=== PATIENT | female | born 1985 | race Caucasian/White ===

== ENCOUNTER → 2019-03-28 14:52 | Outpatient (BNVA) | payer BC, SELFPAY | PROVIDERS: Family Provider Family Medicine; PCP Family Medicine; Visit Provider Nurse Practitioner | DX: G89.29 Other chronic pain (principal); M47.16 Other spondylosis with myelopathy, lumbar region; M25.551 Pain in right hip; M25.552 Pain in left hip; Z79.891 Long term (current) use of opiate analgesic | CPT/HCPCS: 99214 ==

== ENCOUNTER → 2019-05-30 10:45 | Outpatient (BNVA) | payer BC, SELFPAY | PROVIDERS: Family Provider Family Medicine; PCP Family Medicine; Visit Provider Nurse Practitioner | DX: M47.16 Other spondylosis with myelopathy, lumbar region (principal); M25.551 Pain in right hip; M25.552 Pain in left hip; Z79.891 Long term (current) use of opiate analgesic | CPT/HCPCS: 99214 ==

== ENCOUNTER 2022-06-06 13:47 | Emergency (ER) | payer BC, MEDICAID, SELFPAY ==
[2022-06-06 13:50] VITALS: BP 136/82; PULSE 70; RESP 18; TEMP 36.7; O2SAT 98
[2022-06-06 15:16] LABS: Basophils # 0.1 10^3/uL (0.0-0.1); Basophils % 0.6 %; Eosinophils # 0.5 10^3/uL (0.0-0.8); Eosinophils % 5.4 %; Hematocrit 29.1 % (37.0-47.0); Hemoglobin 8.4 g/dL (11.5-15.3); Lymphocytes # 2.3 10^3/uL (0.8-4.8); Mean Corpuscular HGB Conc 28.9 g/dL (30.0-36.0); Mean Corpuscular Hemoglobin 22.7 pg (28.0-34.0); Mean Corpuscular Volume 78.6 fl (81-99); Mean Platelet Volume 9.1 fL (7.4-10.4); Monocytes # 0.6 10^3/uL (0.2-0.9); Monocytes % 6.5 %; Neutrophils # 5.48 10^3/uL (1.8-7.7); Neutrophils % 61.1 %; Nucleated Red Blood Cells % 0 %; Platelet Count 408 10^3/cmm (130-400); Red Cell Distribution Width 17.8 % (12.1-15.1)
[2022-06-06 15:31] LABS: HCG, Serum Qual Negative (Negative)
[2022-06-06 15:36] LABS: Alanine Aminotransferase 15 U/L (0-33); Alkaline Phosphatase 163 U/L (35-105); Anion Gap 16.4 (5-19); Aspartate Amino Transferase 15 U/L (0-32); Blood Urea Nitrogen 7 mg/dL (6-20); Calcium 9.1 mg/dL (8.5-10.5); Carbon Dioxide 22 mmol/L (22-29); Chloride 109 mmol/L (98-107); Globulin 3.6 g/dL (1.3-4.6); Glomerular Filtration Rate 80.7 mL/min (90-130); Glucose 89 mg/dL (65-115); Osmolality Calculated 295 mOsm/kg (285-295); Potassium 3.4 mmol/L (3.5-5.1); Sodium 144 mmol/L (136-145); Total Bilirubin 0.3 mg/dL (0.15-1.2); Total Protein 7.6 g/dL (6.6-8.7)
[2022-06-06 15:53] VITALS: BP 157/104; PULSE 76; RESP 18; O2SAT 100
--- NOTE | 2022-06-06 16:27 | CTR_ITS ---
PROCEDURE INFORMATION: Exam: CTA Chest With Contrast Exam date and time: 06/06/2022 5:17 PM Age: 37 years old Clinical indication: Sternal or substernal pain; Additional info: Chest pain, dyspnea, HX pe/dvt, subtherapeutic inr TECHNIQUE: Imaging protocol: Computed tomographic angiography of the chest with contrast. 3D rendering (Not supervised by radiologist): MIP and/or 3D reconstructed images were created by the technologist. Radiation optimization: All CT scans at this facility use at least one of these dose optimization techniques: automated exposure control; mA and/or kV adjustment per patient size (includes targeted exams where dose is matched to clinical indication); or iterative reconstruction. Contrast material: OMNI 350; Contrast volume: 100 ml; Contrast route: INTRAVENOUS (IV); REPORTING DATA: Count of CT and Cardiac NM exams in prior 12 months: This patient has received 0 known CTs and 0 known cardiac nuclear medicine studies in the 12 months prior to the current study. COMPARISON: CT thoracic spin wo con* [id number] 03/07/2018 8:15 AM RADIATION DOSE METRICS: Total DLP (mGy-cm): 533.75 FINDINGS: Pulmonary arteries: Normal. No pulmonary emboli. Aorta: Unremarkable. No aortic aneurysm. No aortic dissection. Lungs: Left lower lobe atelectasis versus minimal infiltrate. Pleural spaces: Unremarkable. No pneumothorax. No pleural effusion. Heart: Unremarkable. No cardiomegaly. No pericardial effusion. Lymph nodes: Unremarkable. No enlarged lymph nodes. Bones/joints: Lower thoracic spine and upper lumbar spine vertebral body ankylosis suspected, incompletely visualized, please correlate for possible ankylosing spondylitis. Soft tissues: Cholecystectomy. CT/CT angio chest PE protcl [id number] IMPRESSION: 1. Negative for pulmonary embolus. 2. Lower thoracic spine and upper lumbar spine vertebral body ankylosis suspected, incompletely visualized, please correlate for possible ankylosing spondylitis. 3. Left lower lobe atelectasis versus minimal infiltrate. 4. Cholecystectomy.
--- NOTE | 2022-06-06 16:27 | USR_ITS ---
PROCEDURE INFORMATION: Exam: US Duplex Lower Extremity Veins, Bilateral Exam date and time: 06/06/2022 4:48 PM Age: 37 years old Clinical indication: Pain; Leg, lower; Right; Additional info: Leg pain, cramps, chest pain, dyspnea, HX of dvt/pe, , subtherapeutic inr TECHNIQUE: Imaging protocol: Real-time duplex ultrasound of the bilateral extremities with 2-D zaragoza scale, color Doppler flow and spectral waveform analysis including responses to compression and other maneuvers (when performed) with image documentation. Complete exam focused on the lower extremity veins. COMPARISON: No relevant prior studies available. FINDINGS: Right deep veins: Unremarkable. The common femoral, femoral, proximal profunda femoral and popliteal veins are patent without thrombus. Normal Doppler waveforms. Normal compressibility and/or augmentation response. Right superficial veins: Saphenofemoral junction is patent without thrombus. Left deep veins: Unremarkable. The common femoral, femoral, proximal profunda femoral and popliteal veins are patent without thrombus. Normal Doppler waveforms. Normal compressibility and/or augmentation response. Left superficial veins: Saphenofemoral junction is patent without thrombus. Soft tissues: Unremarkable. US/[place] [id number] IMPRESSION: No evidence of deep vein thrombosis.
[2022-06-06 16:28] LABS: Glucose Urine UA Norm (Normal); Ketones Urine Negative (Negative); Protein Urine 1+ (Negative); Urine Appearance Hazy (CLEAR); Urine Color Yellow (Yellow); pH Urine 6 (5-7)
[2022-06-06 16:29] LABS: Add Urine Microscopic? YES; Bacteria Urine TRACE /hpf; Bilirubin Urine Neg (Negative); Blood Urine 3+ (Negative); Leukocyte Esterase Urine Trace (Negative); Mucus Urine 1+ /hpf; Nitrate Urine Negative (Negative); RBC Urine 40-50 /hpf (0-2); Urobilinogen Urine Neg (Negative); WBC Urine 0-4 /hpf (0-5)
[2022-06-06 16:30] LABS: Add Urine Culture? Yes
--- NOTE | 2022-06-06 16:30 | ED_ITS ---
HPI - General Adult General: Chief complaint: General Medical Stated complaint: SOB Time Seen by Provider: 06/06/22 16:13 History of Present Illness: Patient presents to the ER with complaints of dizziness leg cramps chest pain weakness for about the last 4 days. Patient has a history of DVT and PE starting in March of this year due to being put on control pills for vaginal bleeding. Patient is on Coumadin at this time. But her last INR was 1.3 approximately 4 days ago. Patient still having abnormal vaginal bleeding which she is following up with a teachers assistant for. Patient states she feels just like she did in March when she was diagnosed with her DVT and PE Onset (ago): day(s) (For) Location: chest and lower extremity Radiation: non-radiation Severity: moderate Quality: burning and aching Pain Consistency: constant Relieving factors: none Exacerbating factors: none Associated symptoms: Reports chest pain; Deny dyspnea, headache(s), nausea, rash, palpitations or vomiting Review of Systems General: Reports: 10 or more systems reviewed and unremarkable except in HPI and below Const: Reports: body aches; Denies: fever(s) or chills Eyes: Denies: change in vision ENMT: Denies: throat pain or odynophagia Card: Reports: chest pain and edema; Denies: palpitations or irregular heart rhythm Resp: Denies: dyspnea, productive cough or non-productive cough GI: Reports: diarrhea; Denies: abdominal pain, nausea or vomiting : Reports: vaginal bleeding; Denies: flank pain, difficulty voiding, dysuria or urinary frequency Musc: Reports: extremity pain, extremity swelling and muscle cramps; Denies: neck pain or back pain Skin/Breast: Denies: rash, pruritus or erythema Neuro: Denies: headache(s), numbness in extremities or weakness in extremities Psych: Denies: anxiety or depression Endo: Denies: polyuria or polydipsia Jemal/Lymph: Reports: easy bruising and easy bleeding All/Imm: Denies: urticaria, throat swelling or tongue swelling PFSH ED PFSH: Medical History Ankylosing spondylitis of thoracolumbar region Back pain with history of spinal surgery back surgeries x4 Bilateral hip pain Bipolar 1 disorder, depressed, moderate Borderline personality disorder Encounter for long-term opiate analgesic use Low back pain Obstructive sleep apnea (adult) (pediatric) Opioid contract exists Other spondylosis with myelopathy, lumbar region Post-traumatic stress disorder, chronic Psychiatric care Surgical History S/P cholecystectomy laparoscopic S/P wisdom tooth extraction Family History Grandfather Cancer testicular Grandmother Cancer ovary, lung Social History Smoking and tobacco status: never smoked Alcohol intake: never Physical Exam Const: COMMON NORMALS: patient oriented x3, no limitations, healthy appearing, alert and well nourished HENMT: COMMON NORMALS: normocephalic, atraumatic and hearing grossly normal bilaterally HEAD & SCALP: normocephalic and atraumatic Eye: COMMON NORMALS: Equal, round and reactive pupils present, EOMs intact bilaterally and conjunctivae normal CONJUNCTIVA: Yes conjunctivae normal PUPIL: Yes Equal, round and reactive pupils present Neck/C-Spine: COMMON NORMALS: full ROM, no lymphadenopathy, supple, no JVD and Thyroid normal THYROID: Thyroid normal Lymph: LYMPHATIC: no lymphadenopathy noted Chest: COMMONS NORMALS: normal inspection of the chest Resp: COMMON NORMALS: normal respiratory effort, No retractions, No use of accessory muscles and clear to auscultation bilaterally AUSCULTATION: clear to auscultation bilaterally Cardio: COMMON NORMALS: no JVD, regular rate, regular rhythm, S1 normal heart sound present and S2 normal heart sound present RATE: regular rate RHYTHM: regular rhythm HEART SOUNDS: S1 normal heart sound present and S2 normal heart sound present GI: COMMON NORMALS: Normal to inspection, nondistended, normoactive bowel sounds present, Soft to palpation, non-tender and No hepatosplenomegaly present PALPATION: Yes Soft to palpation and Yes No hepatosplenomegaly present : COMMON NORMALS: Yes no CVA tenderness BLADDER/KIDNEY EXAM: Yes no CVA tenderness Back/Pelvis: COMMON NORMALS: no CVA tenderness Extremity: GENERAL: Yes normal exam except as noted, Yes calf tenderness and Yes edema Neuro: COMMON NORMALS: patient oriented x3, CN's II-XII intact bilaterally, moves all extremities, no focal motor deficits and no sensory deficits noted SENSORIUM/ORIENTATION: Yes alert Course Vital Signs: Vital signs: Vital Signs Temperature 98.0 F 06/06/22 13:50 Pulse Rate 72 06/06/22 17:52 Respiratory Rate 18 06/06/22 17:52 Blood Pressure 141/94 06/06/22 17:52 Pulse Oximetry 100 06/06/22 17:52 Oxygen Delivery Me thod 06/06/22 17:52 MDM - General Adult Medical Decision Making Patient presents with long-term history of vaginal bleeding and is currently on Coumadin for history of DVT and PE. Has been having dizziness leg cramps chest pain weakness for about the last 4 days. Patient says this feels exact like when she had her last DVT and PE. History and physical were performed as well as lab work and imaging. CBC showed the patient was anemic with a hemoglobin of 8.4 which is consistent with with what she said she was up approximate week ago, INR was 1.61 which is improved from 1.3 approximately 1 week ago urinalysis did show 3+ blood, venous duplex ultrasound of bilateral lower extremities was negative for DVT, chest CT angiogram was negative for PE. Patiently is currently working with a DECONTAMINATOR to control her bleeding. Labs and imaging as well as physical exam was discussed with patient and patient is comfortable with being discharged to follow-up with her DECONTAMINATOR for further work-up and treatment. Differential Diagnosis Anemia, dysfunctional uterine bleeding, anticoagulation, chest pain, PE, DVT Lab Data I reviewed the patient's lab results. 06/06/22 15:06 06/06/22 15:06 Radiology Impressions Chest CTA 06/06/22 16:27 IMPRESSION: 1. Negative for pulmonary embolus. 2. Lower thoracic spine and upper lumbar spine vertebral body ankylosis suspected, incompletely visualized, please correlate for possible ankylosing spondylitis. 3. Left lower lobe atelectasis versus minimal infiltrate. 4. Cholecystectomy. Venous Duplex 06/06/22 16:27 IMPRESSION: No evidence of deep vein thrombosis. Laboratory Results WBC 9.0 10^3/uL (4.0-10.0) 06/06/22 15:06 RBC 3.70 10^6/uL (4.1-5.3) L 06/06/22 15:06 Hgb 8.4 g/dL (11.5-15.3) L 06/06/22 15:06 Hct 29.1 % (37.0-47.0) L 06/06/22 15:06 MCV 78.6 fl (81-99) L 06/06/22 15:06 MCH 22.7 pg (28.0-34.0) L 06/06/22 15:06 MCHC 28.9 g/dL (30.0-36.0) L 06/06/22 15:06 RDW 17.8 % (12.1-15.1) H 06/06/22 15:06 Plt Count 408 10^3/cmm (130-400) H 06/06/22 15:06 MPV 9.1 fL (7.4-10.4) 06/06/22 15:06 Neut % (Auto) 61.1 % 06/06/22 15:06 Lymph % (Auto) 26.0 % 06/06/22 15:06 [place] % (Auto) 6.5 % 06/06/22 15:06 Eos % (Auto) 5.4 % 06/06/22 15:06 Baso % (Auto) 0.6 % 06/06/22 15:06 Neut # (Auto) 5.48 10^3/uL (1.8-7.7) 06/06/22 15:06 Lymph # (Auto) 2.3 10^3/uL (0.8-4.8) 06/06/22 15:06 [place] # (Auto) 0.6 10^3/uL (0.2-0.9) 06/06/22 15:06 Eos # (Auto) 0.5 10^3/uL (0.0-0.8) 06/06/22 15:06 Baso # (Auto) 0.1 10^3/uL (0.0-0.1) 06/06/22 15:06 Nucleated RBC % (auto) 0 % 06/06/22 15:06 Nucleated RBCs # 0.0 /100WBC 06/06/22 15:06 PT 19.70 SECONDS (12.1-14.9) H 06/06/22 15:06 INR 1.61 (0.8-1.2) H 06/06/22 15:06 Sodium 144 mmol/L (136-145) 06/06/22 15:06 Potassium 3.4 mmol/L (3.5-5.1) L 06/06/22 15:06 Chloride 109 mmol/L (98-107) H 06/06/22 15:06 Carbon Dioxide 22 mmol/L (22-29) 06/06/22 15:06 Anion Gap 16.4 (5-19) 06/06/22 15:06 BUN 7 mg/dL (6-20) 06/06/22 15:06 Creatinine 0.8 mg/dL (0.5-0.9) 06/06/22 15:06 GFR Calculation 80.7 mL/min (90-130) L 06/06/22 15:06 Glucose 89 mg/dL (65-115) 06/06/22 15:06 Calculated Osmolality 295 mOsm/kg (285-295) 06/06/22 15:06 Calcium 9.1 mg/dL (8.5-10.5) 06/06/22 15:06 Magnesium 2.0 mg/dL (1.7-2.3) 06/06/22 15:06 Total Bilirubin 0.3 mg/dL (0.15-1.2) 06/06/22 15:06 AST 15 U/L (0-32) 06/06/22 15:06 ALT 15 U/L (0-33) 06/06/22 15:06 Alkaline Phosphatase 163 U/L (35-105) H 06/06/22 15:06 Total Protein 7.6 g/dL (6.6-8.7) 06/06/22 15:06 Albumin 4.0 g/dL (3.5-5.2) 06/06/22 15:06 Globulin 3.6 g/dL (1.3-4.6) 06/06/22 15:06 HCG, Qual Negative (Negative) 06/06/22 15:06 Urine Color Yellow (Yellow) 06/06/22 15:57 Urine Appearance Hazy (CLEAR) A 06/06/22 15:57 Urine pH 6 (5-7) 06/06/22 15:57 Ur Specific [place] 1.020 (1.005-1.030) 06/06/22 15:57 Urine Protein 1+ (Negative) H 06/06/22 15:57 Urine Glucose (UA) Norm (Normal) 06/06/22 15:57 Urine Ketones Negative (Negative) 06/06/22 15:57 Urine Blood 3+ (Negative) H 06/06/22 15:57 Urine Nitrate Negative (Negative) 06/06/22 15:57 Urine Bilirubin Neg (Negative) 06/06/22 15:57 Urine Urobilinogen Neg mg/dL (Negative) 06/06/22 15:57 Ur Leukocyte Esterase Trace (Negative) H 06/06/22 15:57 Urine RBC 40-50 /hpf (0-2) H 06/06/22 15:57 Urine WBC 0-4 /hpf (0-5) H 06/06/22 15:57 Ur Squamous Epith Cells None /hpf (0-5) 06/06/22 15:57 Amorphous Sediment Not Reportable 06/06/22 15:57 Urine Bacteria Trace /hpf (NONE) 06/06/22 15:57 Urine Mucus 1+ /hpf 06/06/22 15:57 EKG Data EKG 1: I personally reviewed and interpreted this EKG as follows: EKG interpretation date: 06/06/22 EKG interpretation time: 16:39 Prior EKG tracings: not available for review Interpretation: EKG showed normal sinus rhythm with a ventricular rate of 73 bpm NC interval of 138, QRS duration 97, QTc 418, no ST-T wave changes Computer generated interpretation: Chest CTA 06/06/22 16:27 IMPRESSION: 1. Negative for pulmonary embolus. 2. Lower thoracic spine and upper lumbar spine vertebral body ankylosis suspected, incompletely visualized, please correlate for possible ankylosing spondylitis. 3. Left lower lobe atelectasis versus minimal infiltrate. 4. Cholecystectomy. Venous Duplex 06/06/22 16:27 IMPRESSION: No evidence of deep vein thrombosis. Discharge Plan Discharge Patient Disposition: Home Clinical Impression: Abnormal vaginal bleeding, Subtherapeutic international normalized ratio (INR), Leg pain, bilateral, History of thromboembolism Anemia Qualifiers: Anemia type: other cause Condition: Stable Prescriptions: No Action buspirone 10 mg tablet 30 mg PO BID Qty: 180 5RF lamotrigine [Lamictal] 200 mg tablet 200 mg PO BID Qty: 60 5RF valerian root 100 mg capsule 100 mg PO ONCE melatonin 5 mg capsule 10 mg PO .at bedtime Qty: 60 2RF medroxyprogesterone 10 mg tablet 20 mg PO DAILY warfarin 5 mg tablet 5 mg PO DAILY propranolol 10 mg tablet 10 mg PO .QD Rx Instructions: 1/2 to 1 tab po daily lithium carbonate 300 mg capsule 300 mg PO DAILY diphenhydramine HCl [Benadryl] 25 mg capsule 25 mg PO TID PRN Discharge Orders: Discharge ED (Routine); Ordered 06/06/22 Ordered By: Radames Lee Referrals: Abida Carter [Primary Care Provider] - 1 week Patient Instructions: Anemia (ED) Activity Restrictions/Additional Instructions: Follow-up with DECONTAMINATOR for further management Coding Level of Care Code ED Automatic Serging Machine Operator for Chg Jazmine
--- NOTE | 2022-06-06 16:39 | ECG_ITS ---
[facility] Test Date: 2022-06-06 Pat Name: Leonard Reyes Department: Room: Gender: Female Donation Specialist: : 1985 Requested By: Radames Lee Order Number: [id number] Dion MD: Deidre Rosario M.D. Measurements Intervals [place] Rate: 73 P: 10 NE: 138 QRS: 53 QRSD: 97 T: 48 QT: 392 QTc: 434 Interpretive Statements SINUS RHYTHM Nonspecific ST-T changes No previous ECG available for comparison Electronically Signed On 06-07-2022 0:18:50 CDT by Deidre Rosario M.D. [id number]
[2022-06-06] MEDS: ketorolac 30 mg/mL INJ IVP (16:51)
[2022-06-06 17:31] LABS: INR 1.61 (0.8-1.2)
[2022-06-06] MEDS: iohexol 350 mg/mL 500 mL Btl (per mL) IV (17:38)
[2022-06-06 17:52] VITALS: BP 141/94; PULSE 72; RESP 18; O2SAT 100
== END 2022-06-06 19:28 | disposition home or self-care (01) ==
PROVIDERS: Physician Assistant; Emergency Provider Emergency Medicine; PCP Registered Nurse
DX: N93.9 Abnormal uterine and vaginal bleeding, unspecified (principal); M79.662 Pain in left lower leg; M79.661 Pain in right lower leg; D64.9 Anemia, unspecified; R79.1 Abnormal coagulation profile; R19.7 Diarrhea, unspecified; Z79.01 Long term (current) use of anticoagulants; Z86.711 Personal history of pulmonary embolism; Z86.718 Personal history of other venous thrombosis and embolism
CPT/HCPCS: 36415; 71275; 80053; 81001; 83735; 84703; 85025; 85610; 87086; 93005; 93970; 96374; 99285; J1885; Q9967

== ENCOUNTER 2022-06-13 13:46 | Outpatient (CLI) | payer BC, MEDICAID, SELFPAY ==
[2022-06-13 15:19] LABS: Estmated Average Glucose 103; Hemoglobin A1C 5.2 % (4.0-6.0)
[2022-06-13 15:32] LABS: Thyroid Stimulating Hormone 1.42 uIU/mL (0.27-4.20)
== END 2022-06-13 13:47 | disposition home or self-care (01) ==
PROVIDERS: PCP Registered Nurse; Visit Provider Obstetrics & Gynecology
DX: N93.9 Abnormal uterine and vaginal bleeding, unspecified (principal)
CPT/HCPCS: 36415; 83036; 84443

== ENCOUNTER 2022-06-21 05:44 | Day surgery (SDC) | payer BC, MEDICAID, SELFPAY ==
[2022-06-20 12:22] VITALS: BMI 57.9
[2022-06-21] VITALS (7 sets, daily range): BP systolic 138–159; BP diastolic 86–101; PULSE 83–87; RESP 16–20; TEMP 36.1–36.8; O2SAT 94–100
[2022-06-21] MEDS: sodium chloride 0.9% 1,000 ML 30 ML IV (06:20)
--- NOTE | 2022-06-21 06:53 | ANES.PREANE2 ---
Pre-Anesthetic Assessment Height/Weight: Height 1.6 m Weight 148.325 kg Temp Pulse Resp BP Pulse Ox O2 Del Method 98.2 F 84 18 159/101 100 06/21/22 06:06 06/21/22 06:06 06/21/22 06:06 06/21/22 06:06 06/21/22 06:06 06/21/22 06:06 Preop Diagnosis: AUB Operation Date: 06/21/22 07:00 Proposed Procedures p Hysteroscopy, dilation and curettage with Myosure [id number],N93.9(Not Applicable) - Clarisse Decker MD s Dilation And Curettage (D&C)(Not Applicable) - Clarisse Decker MD Familial anesthetic complications: None Was Beta Darcy taken within 24 hours: Yes Last intake: Intake Last Liquid Date 06/21/22 Last Liquid Time 00:00 Last Solid Date 06/20/22 Last Solid Time 19:00 Social No alcohol and No tobacco Exam alert, oriented x 3 and regular rate & rhythm Airway Submandibular: within normal limits Cervical ROM: within normal limits Mallampati: Class III Dentition: false Pulmonary Sleep Apnea CV/HEM Deep Vein Thrombosis (PE) and Hypertension PE 04/18 on Warfarin held since 06/17 None reported Hepatic Fatty Liver GI None reported Metabolic Morbid Obesity Musc/skel Lower Back Pain and Scoliosis (rods inserted and removed Back Sx x4) Neuropsych Anxiety, Bipolar and Depression Anesthetic Plan ASA status: 3 Medications/Allergies Home Medications Medication Instructions Recorded Confirmed Last Taken Type valerian root 100 mg capsule 100 mg PO ONCE 03/21/19 06/21/22 Unknown History melatonin 5 mg capsule 10 mg PO .at bedtime #60 caps 07/04/19 06/21/22 06/20/22 Rx buspirone 10 mg tablet 30 mg PO BID #180 tabs 11/14/19 06/21/22 06/20/22 Rx lamotrigine 200 mg tablet 200 mg PO BID #60 tabs 11/14/19 06/21/22 06/20/22 Rx (Lamictal) diphenhydramine HCl 25 mg capsule 25 mg PO TID PRN Sleep 05/23/22 06/21/22 06/19/22 History (Benadryl) lithium carbonate 300 mg capsule 300 mg PO DAILY 05/23/22 06/21/22 06/20/22 History propranolol 10 mg tablet 10 mg PO .QD 05/23/22 06/21/22 06/21/22 History ferrous sulfate 325 mg (65 mg 325 mg PO DAILY 06/10/22 06/21/22 06/19/22 History iron) tablet naproxen 500 mg tablet 500 mg PO BID #60 tabs 06/14/22 06/21/22 06/20/22 Rx medroxyprogesterone 10 mg tablet 20 mg PO DAILY #60 tabs 06/17/22 06/21/22 06/20/22 Rx misoprostol 200 mcg tablet 600 mcg PO Q6H #12 tabs 06/17/22 06/21/22 06/21/22 Rx (Cytotec) warfarin 2.5 mg tablet 2.5 mg PO DAILY 06/17/22 06/21/22 06/16/22 History warfarin 5 mg tablet 5 mg PO DAILY 06/17/22 06/21/22 06/16/22 History Allergies Allergy/AdvReac Type Severity Reaction Status Date / Time adhesive tape Allergy Severe ALGY-Bliste Verified 06/21/22 06:03 r paroxetine [From Paxil] Allergy hallucinati Verified 06/21/22 06:03 ons banana peppers Allergy ALGY-Anaphy Uncoded 06/21/22 06:03 laxis Current Medications Generic Name Dose Route Start Last Admin Trade Name Freq PRN Reason Stop Dose Admin Sodium Chloride 1,000 mls @ 30 mls/hr 06/21/22 06:00 06/21/22 06:20 Sodium Chloride 0.9% IV 06/22/22 05:59 30 mls/hr .Q24H PAMELA Administration PFSH Anesthesia Medical History Ankylosing spondylitis of thoracolumbar region Back pain with history of spinal surgery back surgeries x4 Bilateral hip pain Bipolar 1 disorder, depressed, moderate Borderline personality disorder Encounter for long-term opiate analgesic use Low back pain Obstructive sleep apnea (adult) (pediatric) Opioid contract exists Other spondylosis with myelopathy, lumbar region Post-traumatic stress disorder, chronic Psychiatric care Surgical History S/P cholecystectomy laparoscopic S/P wisdom tooth extraction Family History Grandfather Cancer testicular Grandmother Cancer ovary, lung Social History Smoking and tobacco status: never smoked Alcohol intake: never Data Anesthesia Cardiac Studies: No Data to Display
--- NOTE | 2022-06-21 06:57 | W.PM.OPSUD ---
Surgery/Procedure H&P Update DATE OF PROCEDURE: June 21, 2022 DATE H&P PERFORMED: 06/17/22 H&P UPDATE INFORMATION: I have reviewed H&P completed within last 30 days, I have examined patient prior to procedure and No changes to prior documentation PREOP DIAGNOSIS: AUB PLANNED PROCEDURE: Operation Date: 06/21/22 07:00 Proposed Procedures p Hysteroscopy, dilation and curettage with Myosure [id number],N93.9(Not Applicable) - Clarisse Decker MD s Dilation And Curettage (D&C)(Not Applicable) - Clarisse Decker MD Related Problem List Diagnoses (1) Thickened endometrium: (2) Abnormal uterine bleeding (AUB):
[2022-06-21] MEDS: ceFAZolin 2,000 MG in sodium chloride 0.9% (plus) 50 ML 100 MG IV (07:06)
[2022-06-21 07:09] LABS: OR HCG Qualitative Urine Negative (Negative)
--- NOTE | 2022-06-21 08:22 | P.OP_ITS ---
Operative Report Date of procedure: June 21, 2022 Pre-op diagnosis: Preop Diagnosis AUB Post-op diagnosis: same Post-op findings: excessive tisse Procedure done: hysteroscopy, D&C with myosure Specimens removed/disposition: endometrial curettings to pathology Surgeon: Clarisse Decker Anesthesia: General Estimated blood loss (mL): 10 IV fluids (mL): 900 Complications: none Findings: 9 week sized uterus. excessive tissue present. Condition: stable Disposition: PACU Procedure: The patient was taken to the operating room where monitored anesthesia was administered and to be adequate. She was prepped and draped in the normal sterile fashion in the dorsal lithotomy position in [facility]. A weighted speculum was placed into the vagina and the anterior lip of the cervix grasped with a single-tooth tenaculum. The uterus was sounded to 9 cm. The cervix was dilated to 16 [place]. The hysteroscope was advanced into the endometrial cavity. There was excessive tissue visualized. The MyoSure device was activated and the tissue was removed. Pictures were taken pre and post procedure. All instruments were removed. The patient tolerated the procedure well. Sponge lap and needle counts were correct x3. She was taken to the recovery room in stable condition. A frozen section was ordered today.
--- NOTE | 2022-06-21 08:30 | PM.DCS ---
Discharge Providers Date of Admission: 06/21/22 Date of Discharge: June 21, 2022 Attending Provider at Discharge: Clarisse Decker MD Primary Care Provider: Abida Carter Diagnoses at Discharge Discharge Diagnosis (1) Thickened endometrium: Status: Acute (2) Abnormal uterine bleeding (AUB): Status: Acute Hospital Course Hospital Course The patient was admitted for surgery. She did well postoperatively and was ready for discharge. Discharge Data Studies Completed and Pending Pending at discharge Category Date Time Status ES surgery / GI images Routine Exams 06/21/22 07:52 Ordered Pathology: Surgical [PTH] Routine Pth 06/21/22 07:57 Ordered Laboratory Results Urine HCG, Qual Negative (Negative) 06/21/22 07:05 Vitals Last Vital Signs Temp 98.2 F 06/21/22 06:06 Pulse 84 06/21/22 06:06 Resp 18 06/21/22 06:06 BP 159/101 06/21/22 06:06 Pulse Ox 100 06/21/22 06:06 O2 Del Method 06/21/22 06:06 Discharge Plan Discharge Patient Disposition: Home Condition: Stable Prescriptions: Continued buspirone 10 mg tablet 30 mg PO BID Qty: 180 5RF lamotrigine [Lamictal] 200 mg tablet 200 mg PO BID Qty: 60 5RF valerian root 100 mg capsule 100 mg PO ONCE melatonin 5 mg capsule 10 mg PO .at bedtime Qty: 60 2RF ferrous sulfate 325 mg (65 mg iron) tablet 325 mg PO DAILY propranolol 10 mg tablet 10 mg PO .QD Rx Instructions: 1/2 to 1 tab po daily lithium carbonate 300 mg capsule 300 mg PO DAILY diphenhydramine HCl [Benadryl] 25 mg capsule 25 mg PO TID PRN (Reason: Sleep) warfarin 2.5 mg tablet 2.5 mg PO DAILY warfarin 5 mg tablet 5 mg PO DAILY medroxyprogesterone 10 mg tablet 20 mg PO DAILY Qty: 60 3RF misoprostol [Cytotec] 200 mcg tablet 600 mcg PO Q6H Qty: 12 0RF Rx Instructions: start at noon, the Monday prior to surgery. naproxen 500 mg tablet 500 mg PO BID Qty: 60 2RF Discharge Orders: Discharge Order (Routine); Ordered 06/21/22 Ordered By: Clarisse Decker Discharge Attestations Time Spent in Discharge Care*: less than 30 min Quality Metrics Clinical Quality Measures [ No reported AMI, CVA or VTE this stay] Coding Level of Care Code Acute Code for Chg Fwd Diagnoses Thickened endometrium R93.89 Abnormal uterine bleeding (AUB) N93.9
[2022-06-21] MEDS: ondansetron 2 mg/ML SDV 2 mL 4 MG IVP (09:01)
--- NOTE | 2022-06-21 16:22 | ANE.PACU2 ---
Inpatient post-anesthesia follow up: Airway intact: Yes Vital signs: Temperature 97.0 F Pulse Rate 83 Respiratory Rate 18 Blood Pressure 138/95 Pulse Oximetry 98 Oxygen Delivery Me thod Room Air Oxygen Flow Rate 98 Fraction of Inspir ed Oxygen Hydration adequate: Yes Nausea and vomiting: No Pain level: 3 Mental status: Baseline
== END 2022-06-21 09:20 | disposition home or self-care (01) ==
PROVIDERS: Anesthesiology; PCP Registered Nurse; Visit Provider Obstetrics & Gynecology
PROC: 0UDB8ZZ Extraction of Endometrium, Via Natural or Artificial Opening Endoscopic (ICD-10-PCS; CPT 58558; principal; 2022-06-21 07:00)
PROC: (CPT 58120; 2022-06-21 07:00)
DX: N93.9 Abnormal uterine and vaginal bleeding, unspecified (principal); G47.30 Sleep apnea, unspecified; Z86.718 Personal history of other venous thrombosis and embolism; Z86.711 Personal history of pulmonary embolism; Z79.01 Long term (current) use of anticoagulants; E66.01 Morbid (severe) obesity due to excess calories; Z68.43 Body mass index [BMI] 50.0-59.9, adult; G47.33 Obstructive sleep apnea (adult) (pediatric)
CPT/HCPCS: 58558; 81025; 84703; 88305; J0330; J0690; J1100; J1885; J2250; J2405; J2704; J3010; J7030

== ENCOUNTER → 2022-06-30 15:36 | Outpatient (BNVA) | payer BC, MEDICAID, SELFPAY | PROVIDERS: PCP Registered Nurse; Visit Provider Registered Nurse | DX: F41.1 Generalized anxiety disorder (principal); F31.32 Bipolar disorder, current episode depressed, moderate; Z79.899 Other long term (current) drug therapy | CPT/HCPCS: 80053; 80061; 80178; 82306; 82607; 83036; 83540; 84443; 85025 ==

== ENCOUNTER → 2022-09-29 10:40 | Outpatient (BNVA) | payer BC, SELFPAY | PROVIDERS: PCP Registered Nurse; Visit Provider Registered Nurse | DX: F41.1 Generalized anxiety disorder (principal); F60.3 Borderline personality disorder; F31.32 Bipolar disorder, current episode depressed, moderate; F43.12 Post-traumatic stress disorder, chronic; Z79.01 Long term (current) use of anticoagulants; Z79.899 Other long term (current) drug therapy | CPT/HCPCS: 80053; 80178; 82306; 83540; 84443; 85025; 85610 ==

== ENCOUNTER → 2022-11-08 10:32 | Outpatient (BNVA) | payer BC, SELFPAY | PROVIDERS: PCP Registered Nurse; Visit Provider Registered Nurse | DX: Z79.899 Other long term (current) drug therapy (principal); F60.3 Borderline personality disorder; F43.12 Post-traumatic stress disorder, chronic; F31.32 Bipolar disorder, current episode depressed, moderate; G47.33 Obstructive sleep apnea (adult) (pediatric); F41.1 Generalized anxiety disorder | CPT/HCPCS: 80053; 80178 ==

== ENCOUNTER → 2023-01-31 09:41 | Outpatient (BNVA) | payer BC, SELFPAY | PROVIDERS: PCP Registered Nurse; Visit Provider Student in an Organized Health Care Education/Training Program | DX: M25.561 Pain in right knee (principal); M94.261 Chondromalacia, right knee | CPT/HCPCS: 73560; 73565 ==

== ENCOUNTER → 2023-09-22 10:06 | Outpatient (BNVA) | payer OTHER, SELFPAY | PROVIDERS: PCP Registered Nurse; Visit Provider Psychiatry & Neurology Psychiatry | DX: Z79.899 Other long term (current) drug therapy (principal); F43.12 Post-traumatic stress disorder, chronic; F31.32 Bipolar disorder, current episode depressed, moderate; F41.1 Generalized anxiety disorder; F60.3 Borderline personality disorder; G47.33 Obstructive sleep apnea (adult) (pediatric) | CPT/HCPCS: 80053; 80061; 80178; 83036; 84443; 85025 ==

== ENCOUNTER → 2024-05-09 08:19 | Outpatient (BNVA) | payer SELFPAY | PROVIDERS: PCP Registered Nurse; Visit Provider Podiatrist Foot & Ankle Surgery | DX: M79.672 Pain in left foot (principal); M72.2 Plantar fascial fibromatosis | CPT/HCPCS: 73630 ==

== ENCOUNTER → 2024-10-22 14:02 | Outpatient (BNVA) | payer MEDICAID, SELFPAY | PROVIDERS: PCP Registered Nurse; Visit Provider Orthopaedic Surgery | DX: M45.5 Ankylosing spondylitis of thoracolumbar region (principal); M54.9 Dorsalgia, unspecified | CPT/HCPCS: 72072; 72100 ==

== ENCOUNTER → 2024-10-31 11:30 | Outpatient (BNVA) | payer MEDICAID, SELFPAY | PROVIDERS: PCP Registered Nurse | DX: F31.32 Bipolar disorder, current episode depressed, moderate (principal) | CPT/HCPCS: 80175; 80178 ==

== ENCOUNTER 2024-11-04 08:39 | Outpatient (CLI) | payer MEDICAID, SELFPAY ==
--- NOTE | 2024-11-04 08:49 | CT_ITS ---
WS: [id number] CT MYELOGRAM LUMBAR SPINE HISTORY: back pain, numerous prior spine surgeries with fusion. TECHNIQUE: Contiguous 2.0 mm axial imaging performed from T12 through the mid sacral level. Bone and soft tissue windows reviewed. Sagittal and coronal reformats are submitted and reviewed. DLP: 1934.[address] scans at [facility] use at least one of these dose optimization techniques: automated exposure control; mA and/or kV adjustment per patient size (includes targeted exams where dose is matched to clinical indication); or iterative reconstruction. COMPARISON: CT lumbar spine 03/07/2018 Thoracolumbar scoliosis. LEFT lumbar curvature. Normal distention of the thecal sac with the subarachnoid contrast injected in the lower lumbar spine. Complete osseous fusion of thoracolumbar vertebral bodies beginning from T11 through the L2-3 disc level. Nonfusion at L3-4, L4-5 and L5-S1. Vacuum disc phenomenon at L5-S1. No fractures. Conus tapers normally and ends at the L1-2 level. L1-L2: Deformity of the thecal sac by scoliosis. No high-grade stenosis. Nerve roots are in the RIGHT lateral thecal sac. L2-L3: Deformity of the thecal sac and displacing the nerve roots secondary to scoliosis. Bony fusion posteriorly. No central or foraminal stenosis. L3-L4: Asymmetric disc bulging to the LEFT. Marked facet joint arthropathy encroaching upon the thecal sac. Osteophytes contact the lateral thecal sac. There is osteophytic ridging. Mild RIGHT and moderate LEFT foraminal stenosis. Moderate Central and subarticular recess stenosis. L4-L5: Mild annular disc bulging with osseous fusion posteriorly. No central stenosis. Mild bilateral foraminal stenosis, LEFT greater than RIGHT. L5-S1: Mild osteophytic ridging and disc bulging with a central disc protrusion. There is very slight contact on the S1 nerve roots. Mild RIGHT and moderate LEFT foraminal stenosis. Paravertebral soft tissues are negative for acute process. Mild degenerative changes in the SI joints. CT/CT lumbar spine w con [id number] IMPRESSION: 1. Complete osseous fusion beginning within the lower visualized thoracic spin e to the L2-3 level. 2. L3-4: Osseous fusion encroaches upon the thecal sac. There is osteophyte co ntacting the lateral aspect of the thecal sac. Moderate central stenosis with e ffacement of CSF. Mild RIGHT and moderate LEFT foraminal stenosis. 3. L4-5: Mild bilateral foraminal stenosis, LEFT greater than RIGHT. 4. L5-S1: Moderate LEFT and mild RIGHT foraminal stenosis. Minimal contact on the S1 nerve roots by central disc protrusion. 5. LEFT scoliosis.
--- NOTE | 2024-11-04 09:00 | IR_ITS ---
WS: [id number] LUMBAR MYELOGRAM HISTORY: back pain COMPARISON: None available. FLUOROSCOPY TIME: 1min [id number] # of spot films: 2 Procedure, risks and complications were explained to the patient. Risks including bleeding, infection, headaches, allergic reaction and seizures. Consent has been obtained. With the patient in prone position the skin over the lumbar region is cleansed with ChloraPrep and anesthetized with lidocaine. 22-gauge spinal needle is inserted into the thecal sac at the appropriate level determined by fluoroscopy. Omnipaque 240; 12 ml is injected slowly under fluoroscopy with no complications. Needle bevel is perpendicular to the longitudinal fibers of the dura. Stylet is reinserted prior to removal of the needle. Patient tolerated the procedure well. Patient will proceed to CT for further evaluation. IR/IR myelogram sp lumbar [id number] IMPRESSION: Uncomplicated lumbar myelogram. Please see CT report to follow.
[2024-11-04] MEDS: iohexol 240 mg/mL 50 mL Btl 20 ML INTRATHECA (10:37)
== END 2024-11-04 08:40 | disposition home or self-care (01) ==
LOC: RAD 08:40
PROVIDERS: PCP Registered Nurse; Visit Provider Orthopaedic Surgery
DX: M48.061 Spinal stenosis, lumbar region without neurogenic claudication (principal); M43.26 Fusion of spine, lumbar region; M41.9 Scoliosis, unspecified; M51.26 Other intervertebral disc displacement, lumbar region
CPT/HCPCS: 62304; 72132; J9999

== ENCOUNTER → 2024-12-19 10:30 | Outpatient (BNVA) | payer MEDICAID, SELFPAY | PROVIDERS: PCP Registered Nurse | DX: F31.32 Bipolar disorder, current episode depressed, moderate (principal); Z79.899 Other long term (current) drug therapy | CPT/HCPCS: 80053; 80061; 80178; 83036; 84443; 85025 ==

== ENCOUNTER → 2025-01-06 09:09 | Outpatient (BNVA) | payer MEDICAID, SELFPAY | PROVIDERS: PCP Registered Nurse | DX: Z79.899 Other long term (current) drug therapy (principal) | CPT/HCPCS: 80178 ==